=== PATIENT | male | born 1985 | race Caucasian/White ===

== ENCOUNTER 2023-02-17 22:47 | Observation (INO) | payer OTHER ==
[2023-02-17 23:32] LABS: Hematocrit 45.2 % (42.0-52.0); Mean Corpuscular HGB CONC 33.1 g/dL (32.0-36.0); Mean Corpuscular Hemoglobin 28.2 pg (27.0-31.0); Mean Corpuscular Volume 85.3 fl (78.0-98.0); White Blood Cell (WBC) Count 6.7 10x3/uL (4.8-10.8)
[2023-02-17 23:33] LABS: #Basophils 0.1 thou/uL (0.0-0.2); #Eosinphils 0.1 thou/uL (0.0-0.7); #Lymphocytes 1.3 thou/uL (1.20-3.40); #Monocytes 0.9 thou/uL (0.11-0.59); #Neutrophils 4.3 thou/uL (1.40-6.50); %Basophils 1.4 % (0.0-1.0); %Eosinophils 1.8 % (0.0-10.0); %Lymphocytes 18.9 % (21.0-51.0); %Monocytes 13.1 % (0.0-10.0); %Neutrophils 64.8 % (42.0-75.0); Mean Platelet Volume 6.9 fL (7.4-10.4); Platelet Count 258 10x3/uL (130-400); RBC Distribution Width 11.5 % (11.5-14.5)
[2023-02-17 23:49] LABS: BUN (Urea Nitrogen) 27 mg/dL (8.9-20.6); Calc. Creatinine Clearance 0 mL/min (70-130); Carbon Dioxide 21 mmol/L (22-29); Chloride 105 mmol/L (98-107); Estimated GFR 30; Glucose 155 mg/dL (70-105); Potassium 3.5 mmol/L (3.5-5.1); Sodium 142 mmol/L (136-145)
[2023-02-17 23:50] LABS: ALT (SGPT) 22 U/L (8-55); AST (SGOT) 24 U/L (5-34); Albumin 5.1 g/dL (3.5-5.0); Alkaline Phosphatase 68 U/L (40-110); Bilirubin, Total 0.5 mg/dL (0.2-1.2); CK (CPK) 308 U/L (30-200); Calcium 10.1 mg/dL (7.6-10.4); Globulin 3.1 g/dL (2.4-3.5); Protein, Total 8.2 g/dL (6.0-8.3)
[2023-02-17 23:51] LABS: Anion Gap 20 mmol/L (10-20)
[2023-02-18 00:46] VITALS: BMI 23.6
[2023-02-18] MEDS ORDERED: Ondansetron PF 4 MG/2 ML Vial IVP PRN (01:15)
[2023-02-18] MEDS ORDERED: Ondansetron ODT 4 MG TAB SL PRN (01:15)
[2023-02-18] MEDS ORDERED: Acetaminophen 325 MG TAB PO PRN (01:15)
[2023-02-18] MEDS: Sodium Chloride 0.9% 1,000 ML IV SCH (01:23)
[2023-02-18 06:50] LABS: Anion Gap 13 mmol/L (10-20); Carbon Dioxide 22 mmol/L (22-29); Chloride 109 mmol/L (98-107); Potassium 3.9 mmol/L (3.5-5.1); Sodium 140 mmol/L (136-145)
[2023-02-18 06:51] LABS: BUN (Urea Nitrogen) 23 mg/dL (8.9-20.6); CK (CPK) 266 U/L (30-200); Calc. Creatinine Clearance 68 mL/min (70-130); Estimated GFR 58; Glucose 92 mg/dL (70-105)
[2023-02-18 06:52] LABS: Lactic Acid 0.7 mmol/L (0.5-2.2)
[2023-02-18 09:46] VITALS: BP 115/71; TEMP 97.9
== END 2023-02-18 11:45 | disposition home or self-care (01) ==
LOC: BURERS 22:47 → INTOOBSV 02-18 00:21 → BURMED 02-18 00:21
PROVIDERS: ADMIT Family Medicine; ATTEND Family Medicine
DX: E86.0 Dehydration (principal); N17.9 Acute kidney failure, unspecified; E87.20 Acidosis, unspecified; M62.82 Rhabdomyolysis
CPT/HCPCS: 36415; 80048; 80053; 82550; 83605; 85025; G0378; J7050